=== PATIENT | female | born 1990 | race Caucasian/White ===

== ENCOUNTER 2018-03-26 13:37 | Emergency (ER) | END 2018-03-26 15:38 | disposition home or self-care (01) ==

== ENCOUNTER 2018-04-05 19:30 | Emergency (ER) | END 2018-04-05 20:10 | disposition home or self-care (01) ==

== ENCOUNTER 2018-11-16 20:13 | Emergency (ER) | payer SELFPAY ==
[~2018-11-16] VITALS: Ht 160 cm; Wt 70.0 kg
[~2018-11-16 20:13] MED LIST: AMOX500C2 PO; IBUP-1542 PO; LORA10CA PO; MECL12.574 PO; MED4DP PO; NAPR-985 PO; OMEP20CA16 PO
[2018-11-16 20:32] VITALS: BP 127/71; PULSE 103; RESP 18; Ht 160 cm; Wt 70.0 kg
== END 2018-11-17 01:33 | disposition left against medical advice (07) ==
LOC: FTE 20:13
DX: Z53.21 Procedure and treatment not carried out due to patient leaving prior to being seen by health care provider (principal)